=== PATIENT | female | born 1970 | race Caucasian/White ===

== ENCOUNTER 2016-10-09 16:54 | Observation (INO) | payer OTHER ==
[~2016-10-09] VITALS: Ht 160 cm; Wt 223.0 kg
[~2016-10-09 16:54] MED LIST: ADVAIR 100/501 DISK IH; ADVAIR 250-501 EACH IH; ADVAIR 250/501 DISK IH; ALBUTEROL SULF8.5 GM IH; ALDARA1 EAC1 TP; ALLERGY4 MG PO; AMOX TR-K CLV1 EAC4 PO; AMOXICILLIN500 MG PO; ATARAX,VISTARIL25 MG PO; BENZONATATE100 MG PO; CINNAMON500 MG PO; CLEOCIN300 MG PO; CLINDAMYCIN HC300 MG PO; CLOTRIM ANTIFUN15 GM TP; CYCLOBENZAPRINE10 MG PO; CYMBALTA60 MG PO; Claritin,Alavart PO; DAILY VITAMIN1 EAC8 PO; DILAUDID2 MG PO; FLEXERIL10 MG PO; FLEXERIL5 M1 PO; FLUTICASONE FUROATE BOTH NARES; FLUTICASONE PRO16 GM BOTH NARES; GUMMI BEAR MUL1 EACH PO; HYDROCHLOROTHIA25 MG PO; HYDROCODON-ACE1 EAC7 PO; INDOCIN50 MG PO; INDOMETHACIN75 MG PO; KEFLEX500 MG PO; LASIX20 MG PO; LISINOPRIL20 MG PO; MEDROL DOSEPAK4 MG PO; MIRENA52 MG IY; MOBIC7.5 MG PO; MOTRIN800 MG PO; PERCOCET 10/1 TABLET PO; PERCOCET 5/31 TABLET PO; PERCOCET 7.51 TABLET PO; PHENERGAN12.5 M1 PO; POTASSIUM CHLO10 ME3 PO; PRINIVIL20 MG PO; PROAIR HFA8.5 GM IH; PROBIOTIC1 EAC1 PO; PROMETHAZINE HC25 M1 PO; SPRINTEC1 EACH; SPRINTEC1 EACH PO; Sudafed PO; TESSALON PERLE100 MG PO; TESSALON200 MG PO; TUMERIC; TYLENOL WITH C1 EACH PO; VALIUM5 MG PO; VALTREX50 MG/ML PO; VIBRAMYCIN100 MG PO; ZANAFLEX4 MG PO; ZITHROMAX Z-PA250 MG PO; ZITHROMAX250 MG PO; ZOFRAN ODT4 MG PO; ZYRTEC10 M3 PO; ZYRTEC10 M4 PO
[2016-10-09 18:02] LABS: ADD MIUA? NO; BILIRUBIN NEGATIVE; BLOOD NEGATIVE; COLOR YELLOW ((YELLOW)); GLUCOSE (STRIP) NEGATIVE; KETONES NEGATIVE; LEUKOCYTES NEGATIVE; NITRITE NEGATIVE; PROTEIN (STRIP) NEGATIVE; SPECIFIC GRAVITY 1.008 (1.000-1.030); UCUL ADDED? NO; UROBILINOGEN 0.2 MG/DL (0.2-1.0)
[2016-10-09 18:03] LABS: HEMATOCRIT 36.6 % (36.0-46.0); MCH 29.6 PG (29.0-34.0); MCHC 31.4 G/DL (30.0-36.0); MCV 94.1 FL (83-99); MEAN PLAT.VOLUME 10.1 uM^3 (9.5-12.4); PLATELET COUNT 214 K/uL (156-360); RBC DIS.WIDTH-CV 14.1 % (11.8-14.6); RBC DIS.WIDTH-SD 46.1 % (39-53); RED BLOOD COUNT 3.89 M/uL (3.80-5.20); WHITE BLOOD COUNT 7.5 K/uL (4.1-10.2)
[2016-10-09 18:12] LABS: CHLORIDE 107 mEq/L (99-109); POTASSIUM 5.7 mEq/L (3.7-5.4); SODIUM 139 mEq/L (136-147)
[2016-10-09 18:15] LABS: GLUCOSE 94 mg/dL (70-99)
[2016-10-09 18:16] LABS: ANION GAP 6 MEQ/L (2-14)
[2016-10-09 18:17] LABS: TOTAL BILIRUBIN 0.3 mg/dL (0.0-1.0)
[2016-10-09 18:18] LABS: ALKALINE PHOSPHATASE 59 IU/L (3-129); GFR ESTIMATE (CALCULATED) > 59 mL/min/
[2016-10-09 18:20] LABS: DIRECT BILIRUBIN 0.1 mg/dL (0.0-0.3); UREA NITROGEN (BUN) 15 mg/dL (9-23)
[2016-10-09 18:22] LABS: LIPASE 29 U/L (1.0-51.0)
[2016-10-09] MEDS ORDERED: PERCOCET 5/31 TABLET PO (20:31)
[2016-10-09] MEDS ORDERED: ZYRTEC10 M3 PO (21:20)
[2016-10-09] MEDS ORDERED: PROMETHAZINE HC25 M1 PO (21:22)
[2016-10-09] MEDS ORDERED: DURAGESIC25 MCG TD (21:22)
[2016-10-09] MEDS ORDERED: TYLENOL ARTHRI650 MG PO (21:22)
[2016-10-09] MEDS ORDERED: TUMERIC PO (21:23)
[2016-10-09] MEDS ORDERED: TIZANIDINE HCL4 MG PO (21:23)
[2016-10-09] MEDS ORDERED: INHALER IH (21:24)
[2016-10-10 00:57] VITALS: BP 128/62
[2016-10-10 03:52] LABS: METH RESISTANT S AUREUS PCR NEGATIVE (NEGATIVE)
[2016-10-10 04:18] VITALS: BP 98/58
[2016-10-10 04:37] LABS: PROBE CHECK PASS; SPECIMEN PROCESSING CONTROL PASS
[2016-10-10 06:33] LABS: ANION GAP 5 MEQ/L (2-14); CHLORIDE 105 MEQ/L (99-109); GFR ESTIMATE (CALCULATED) > 59 mL/min/; GLUCOSE 100 mg/dL (70-99); POTASSIUM 4.8 MEQ/L (3.7-5.4); SAMPLE HEMOLYSIS CHECK 0; SAMPLE ICTERIC CHECK 0; SAMPLE LIPEMIA CHECK 0; SODIUM 139 MEQ/L (136-147); UREA NITROGEN (BUN) 13 mg/dL (9-23)
[2016-10-10 06:43] LABS: EOSINOPHIL (%) 3.2 % (0-5); EOSINOPHIL COUNT 0.1 K/uL (0-0.3); HEMATOCRIT 33.9 % (36.0-46.0); LYMPHOCYTE COUNT 1.2 K/uL (1.0-2.8); MCH 29.1 PG (29.0-34.0); MCHC 30.7 G/DL (30.0-36.0); MEAN PLAT.VOLUME 9.9 uM^3 (9.5-12.4); MONOCYTE (%) 10.8 % (3-12); MONOCYTE COUNT 0.5 K/uL (0-0.8); NEUTROPHIL (%) 59.2 % (45-76); NEUTROPHIL COUNT 2.6 K/uL (1.8-6.4); PLATELET COUNT 171 K/uL (156-360); RBC DIS.WIDTH-CV 14.6 % (11.8-14.6); RBC DIS.WIDTH-SD 50.4 % (39-53); RED BLOOD COUNT 3.57 M/uL (3.80-5.20)
[2016-10-10 06:44] LABS: WHITE BLOOD COUNT 4.4 K/uL (4.1-10.2)
[2016-10-10 09:00] VITALS: BP 136/64
[2016-10-10 09:32] LABS: ADD MIUA? NO; BILIRUBIN NEGATIVE; BLOOD NEGATIVE; COLOR YELLOW ((YELLOW)); GLUCOSE (STRIP) NEGATIVE; KETONES NEGATIVE; LEUKOCYTES NEGATIVE; NITRITE NEGATIVE; PROTEIN (STRIP) NEGATIVE; SPECIFIC GRAVITY 1.012 (1.000-1.030); UCUL ADDED? NO; UROBILINOGEN 0.2 MG/DL (0.2-1.0)
[2016-10-10] MEDS ORDERED: DULERA 100 MCG/13 GM IH (11:37)
[2016-10-10 12:44] VITALS: BP 129/60
[2016-10-10 16:30] VITALS: BP 115/55
[2016-10-10 20:00] VITALS: BP 133/62
[2016-10-11 07:29] VITALS: BP 138/62
[2016-10-11] MEDS ORDERED: DITROPAN5 MG PO (07:58)
== END 2016-10-11 10:15 | disposition home or self-care (01) ==
LOC: EME 16:54 → 5WEST 22:51 → EDOF 22:51 → 5WEST 10-10 00:09
PROVIDERS: Emergency Medicine; Hospitalist; Nurse Practitioner Adult Health
DX: R10.32 Left lower quadrant pain (principal); R35.0 Frequency of micturition; R39.15 Urgency of urination; I87.2 Venous insufficiency (chronic) (peripheral); I89.0 Lymphedema, not elsewhere classified; E66.01 Morbid (severe) obesity due to excess calories; G89.29 Other chronic pain; M54.9 Dorsalgia, unspecified; I10 Essential (primary) hypertension; J45.909 Unspecified asthma, uncomplicated; Z98.1 Arthrodesis status; Z68.45 Body mass index [BMI] 70 or greater, adult
CPT/HCPCS: 74020; 76770; 80048; 80076; 81003; 83690; 84132 91; 85025; 85027; 87086; 87641; 94640; 99202; 99281; 99285; G0378; J1170; J1644; J2270; J2405; J7030; J7050; Q0169

== ENCOUNTER 2016-10-26 21:22 | Emergency (ER) | payer OTHER ==
[~2016-10-26] VITALS: Ht 160 cm; Wt 220.8 kg
[~2016-10-26 21:22] MED LIST changes: +DITROPAN5 MG PO; +DULERA 100 MCG/13 GM IH; +DURAGESIC25 MCG TD; +INHALER IH; +TIZANIDINE HCL4 MG PO; +TUMERIC PO; +TYLENOL ARTHRI650 MG PO
[2016-10-26 21:53] LABS: HEMATOCRIT 40.3 % (36.0-46.0); MCH 29.2 PG (29.0-34.0); MCHC 30.5 G/DL (30.0-36.0); MCV 95.7 FL (83-99); MEAN PLAT.VOLUME 9.7 uM^3 (9.5-12.4); RBC DIS.WIDTH-CV 14.5 % (11.8-14.6); RBC DIS.WIDTH-SD 50.5 % (39-53); RED BLOOD COUNT 4.21 M/uL (3.80-5.20)
[2016-10-26 22:03] LABS: CHLORIDE 105 mEq/L (99-109); PLATELET COUNT 259 K/uL (156-360); POTASSIUM 5.2 mEq/L (3.7-5.4); SODIUM 140 mEq/L (136-147); WHITE BLOOD COUNT 8.1 K/uL (4.1-10.2)
[2016-10-26 22:06] LABS: GLUCOSE 110 mg/dL (70-99)
[2016-10-26 22:07] LABS: ANION GAP 8 MEQ/L (2-14)
[2016-10-26 22:08] LABS: TOTAL BILIRUBIN 0.4 mg/dL (0.0-1.0)
[2016-10-26 22:09] LABS: ALKALINE PHOSPHATASE 60 IU/L (3-129); GFR ESTIMATE (CALCULATED) > 59 mL/min/
[2016-10-26 22:10] LABS: UREA NITROGEN (BUN) 11 mg/dL (9-23)
[2016-10-26 22:19] LABS: QUANTITATIVE HCG < 4.0 MIU/ML
[2016-10-27 00:21] LABS: ADD MIUA? YES; BILIRUBIN NEGATIVE; BLOOD NEGATIVE; COLOR YELLOW ((YELLOW)); GLUCOSE (STRIP) NEGATIVE; KETONES NEGATIVE; LEUKOCYTES TRACE; NITRITE NEGATIVE; PROTEIN (STRIP) NEGATIVE; SPECIFIC GRAVITY 1.018 (1.000-1.030); UROBILINOGEN 0.2 MG/DL (0.2-1.0)
[2016-10-27] MEDS ORDERED: ZOFRAN8 MG PO (00:22)
[2016-10-27] MEDS ORDERED: DILAUDID2 MG PO (00:22)
[2016-10-27] MEDS ORDERED: BENTYL20 MG PO (00:22)
[2016-10-27 00:26] LABS: BACTERIA RARE /HPF; EPITHELIAL CELLS RARE /HPF; MUCUS TRACE /LPF; RED BLOOD CELLS 0-5 /HPF (0-5); UCUL ADDED? NO; WHITE BLOOD CELLS 0-5 /HPF (0-5)
[2016-10-27 00:48] LABS: LIPASE 13 U/L (1.0-51.0)
[2016-10-27 01:06] VITALS: BP 110/43
== END 2016-10-27 01:09 | disposition home or self-care (01) ==
LOC: EME 21:22 → EXP 21:22
DX: R10.30 Lower abdominal pain, unspecified (principal); R11.0 Nausea; A04.7 Enterocolitis due to Clostridium difficile; I10 Essential (primary) hypertension; J44.9 Chronic obstructive pulmonary disease, unspecified; F32.9 Major depressive disorder, single episode, unspecified; E66.01 Morbid (severe) obesity due to excess calories; Z68.45 Body mass index [BMI] 70 or greater, adult; Z98.1 Arthrodesis status; Z86.14 Personal history of Methicillin resistant Staphylococcus aureus infection
CPT/HCPCS: 80053; 81003; 83605; 83690; 84702; 85027; 99281; 99284; J1170; Q0169

== ENCOUNTER 2017-05-13 20:21 | Emergency (ER) | payer OTHER ==
[~2017-05-13] VITALS: Ht 160 cm; Wt 212.3 kg
[~2017-05-13 20:21] MED LIST changes: +BENTYL20 MG PO; +MULTIPLE VITAM1 EAC1 PO; +MYRBETRIQ50 MG PO; +OMEPRAZOLE20 MG PO; +VENTOLIN HFA18 GM IH; +ZOFRAN8 MG PO
[2017-05-13 23:05] LABS: HEMATOCRIT 34.6 % (36.0-46.0); MCH 29.6 PG (29.0-34.0); MCHC 30.9 G/DL (30.0-36.0); MCV 95.8 FL (83-99); MEAN PLAT.VOLUME 9.3 uM^3 (9.5-12.4); PLATELET COUNT 237 K/uL (156-360); RBC DIS.WIDTH-SD 49.5 % (39-53); RED BLOOD COUNT 3.61 M/uL (3.80-5.20); WHITE BLOOD COUNT 4.9 K/uL (4.1-10.2)
[2017-05-13 23:16] LABS: CHLORIDE 105 mEq/L (99-109); SODIUM 138 mEq/L (136-147)
[2017-05-13 23:18] LABS: GLUCOSE 108 mg/dL (70-99)
[2017-05-13 23:19] LABS: ANION GAP 7 MEQ/L (2-14)
[2017-05-13 23:21] LABS: GFR ESTIMATE (CALCULATED) > 59 mL/min/
[2017-05-13 23:22] LABS: UREA NITROGEN (BUN) 15 mg/dL (9-23)
[2017-05-14] MEDS ORDERED: KEFLEX500 MG PO (00:20)
[2017-05-14 01:14] VITALS: BP 118/57
== END 2017-05-14 01:15 | disposition home or self-care (01) ==
LOC: EXP 20:21 → EME 20:21 → EXP 05-14 01:15
PROVIDERS: Physician Assistant
DX: L03.115 Cellulitis of right lower limb (principal); L03.116 Cellulitis of left lower limb; J44.9 Chronic obstructive pulmonary disease, unspecified; Z88.8 Allergy status to other drugs, medicaments and biological substances; F32.9 Major depressive disorder, single episode, unspecified
CPT/HCPCS: 71020; 80048; 83880; 85027; 99281; 99284

== ENCOUNTER 2018-03-26 15:24 | Inpatient (IN) | payer OTHER ==
[~2018-03-26] VITALS: Ht 160 cm; Wt 209.5 kg
[2018-03-26] VITALS (7 sets, daily range): BP systolic 127–162; BP diastolic 57–78
[~2018-03-26 15:24] MED LIST changes: -TYLENOL ARTHRI650 MG PO; +TYLENOL EXTRA500 MG PO
[2018-03-26 16:57] LABS: BASOPHIL (%) 0.2 % (0-1); EOSINOPHIL (%) 3.7 % (0-5); EOSINOPHIL COUNT 0.2 K/uL (0-0.3); HEMATOCRIT 23.6 % (36.0-46.0); IMMATURE GRANULOCYTE (%) 0.2 % (0.0-0.7); LYMPHOCYTE (%) 20.5 % (15-42); LYMPHOCYTE COUNT 1.2 K/uL (1.0-2.8); MCH 23.6 PG (29.0-34.0); MCHC 29.7 G/DL (30.0-36.0); MCV 79.7 FL (83-99); MONOCYTE (%) 9.2 % (3-12); MONOCYTE COUNT 0.6 K/uL (0-0.8); NEUTROPHIL (%) 66.2 % (45-76); PLATELET COUNT 322 K/uL (156-360); RBC DIS.WIDTH-CV 16.7 % (11.8-14.6); RBC DIS.WIDTH-SD 48.3 % (39-53); RED BLOOD COUNT 2.96 M/uL (3.80-5.20)
[2018-03-26 17:06] LABS: CHLORIDE 108 mEq/L (99-109); POTASSIUM 4.6 mEq/L (3.7-5.4); SODIUM 139 mEq/L (136-147)
[2018-03-26 17:07] LABS: GLUCOSE 97 mg/dL (70-99)
[2018-03-26 17:11] LABS: CREATININE 0.7 mg/dL (0.6-1.3); GFR ESTIMATE (CALCULATED) > 59 mL/min/
[2018-03-26 17:12] LABS: UREA NITROGEN (BUN) 16 mg/dL (9-23)
[2018-03-26 17:18] LABS: TROP-I INTERPRETATION NEGATIVE; TROPONIN-I < 0.01 ng/mL (0.0-0.30)
[2018-03-26 18:21] LABS: ALBUMIN 3.4 g/dL (3.2-4.8); PTT 23.9 SEC (25-37)
[2018-03-26 18:24] LABS: TOTAL PROTEIN 7.3 g/dL (6.4-8.3)
[2018-03-26 18:26] LABS: TOTAL BILIRUBIN 0.2 mg/dL (0.0-1.0)
[2018-03-26 18:27] LABS: ALKALINE PHOSPHATASE 56 IU/L (3-129)
[2018-03-26 18:29] LABS: AST (GOT) 22 IU/L (2-34); DIRECT BILIRUBIN 0.1 mg/dL (0.0-0.3)
[2018-03-26 18:30] LABS: ALT (GPT) 16 IU/L (3-49)
[2018-03-26 20:54] LABS: APPEARANCE CLEAR ((CLEAR)); BILIRUBIN NEGATIVE; BLOOD NEGATIVE; COLOR YELLOW ((YELLOW)); GLUCOSE (STRIP) NEGATIVE; KETONES NEGATIVE; LEUKOCYTES NEGATIVE; NITRITE NEGATIVE; PROTEIN (STRIP) NEGATIVE; SPECIFIC GRAVITY 1.027 (1.000-1.030); UROBILINOGEN 0.2 MG/DL (0.2-1.0)
[2018-03-26] MEDS ORDERED: VITAMIN B-6100 MG PO (22:55)
[2018-03-26] MEDS ORDERED: CYANOCOBALAM1000 MCG PO (22:55)
[2018-03-26] MEDS ORDERED: FISH OIL 1,0001 EAC7 PO (22:56)
[2018-03-26] MEDS ORDERED: PROAIR HFA8.5 GM IH (22:57)
[2018-03-26] MEDS ORDERED: ZANTAC150 MG PO (22:58)
[2018-03-26] MEDS ORDERED: ADVIL,NUPRIN,M200 MG PO (22:59)
[2018-03-27 00:47] LABS: BASOPHIL (%) 0.2 % (0-1); EOSINOPHIL (%) 2.7 % (0-5); EOSINOPHIL COUNT 0.2 K/uL (0-0.3); HEMOGLOBIN 8.4 G/DL (11.9-15.5); IMMATURE GRANULOCYTE (%) 0.4 % (0.0-0.7); LYMPHOCYTE (%) 22.7 % (15-42); LYMPHOCYTE COUNT 1.3 K/uL (1.0-2.8); MCH 24.3 PG (29.0-34.0); MCV 80.9 FL (83-99); MONOCYTE (%) 6.7 % (3-12); MONOCYTE COUNT 0.4 K/uL (0-0.8); NEUTROPHIL (%) 67.3 % (45-76); NEUTROPHIL COUNT 3.7 K/uL (1.8-6.4); PLATELET COUNT 315 K/uL (156-360); RBC DIS.WIDTH-CV 16.9 % (11.8-14.6); RBC DIS.WIDTH-SD 49.3 % (39-53); RED BLOOD COUNT 3.46 M/uL (3.80-5.20); WHITE BLOOD COUNT 5.6 K/uL (4.1-10.2)
[2018-03-27 00:56] VITALS: BP 116/57
[2018-03-27 00:58] LABS: CHLORIDE 108 mEq/L (99-109); POTASSIUM 4.3 mEq/L (3.7-5.4); SODIUM 141 mEq/L (136-147)
[2018-03-27 01:00] LABS: GLUCOSE 107 mg/dL (70-99)
[2018-03-27 01:04] LABS: CREATININE 0.7 mg/dL (0.6-1.3); GFR ESTIMATE (CALCULATED) > 59 mL/min/
[2018-03-27 01:05] LABS: UREA NITROGEN (BUN) 14 mg/dL (9-23)
[2018-03-27 05:20] VITALS: BP 102/49
[2018-03-27 07:57] VITALS: BP 124/57
[2018-03-27 08:40] LABS: HEMATOCRIT 26.5 % (36.0-46.0); HEMOGLOBIN 7.9 G/DL (11.9-15.5); MCV 80.5 FL (83-99)
[2018-03-27 12:03] VITALS: BP 123/59
[2018-03-27 15:02] LABS: STOOL OCCULT BLD 1ST SPECIMEN NEGATIVE
[2018-03-27 15:39] VITALS: BP 133/61
[2018-03-27 15:49] LABS: HEMATOCRIT 25.8 % (36.0-46.0); HEMOGLOBIN 7.7 G/DL (11.9-15.5); MCV 81.1 FL (83-99)
[2018-03-27 16:13] LABS: IRON 32 MCG/DL (35-150); TRANSFERRIN (TIBC) 351.9 mg/dL (215-380); TRANSFERRIN SATUR. 9 % (20-55)
[2018-03-27 16:31] LABS: FERRITIN 6 NG/ML (10-291)
[2018-03-27 16:40] LABS: FOLIC ACID (FOLATE) > 22.0 NG/ML (5.0-22.0)
[2018-03-27 20:12] VITALS: BP 110/53
[2018-03-28] VITALS (7 sets, daily range): BP systolic 110–140; BP diastolic 44–67
[2018-03-28 05:37] LABS: BASOPHIL (%) 0.2 % (0-1); EOSINOPHIL (%) 3.4 % (0-5); EOSINOPHIL COUNT 0.2 K/uL (0-0.3); HEMATOCRIT 25.9 % (36.0-46.0); HEMOGLOBIN 7.5 G/DL (11.9-15.5); IMMATURE GRANULOCYTE (%) 0.6 % (0.0-0.7); LYMPHOCYTE (%) 23.7 % (15-42); LYMPHOCYTE COUNT 1.2 K/uL (1.0-2.8); MCH 23.7 PG (29.0-34.0); MCV 81.7 FL (83-99); MONOCYTE (%) 9.4 % (3-12); MONOCYTE COUNT 0.5 K/uL (0-0.8); NEUTROPHIL (%) 62.7 % (45-76); NEUTROPHIL COUNT 3.1 K/uL (1.8-6.4); PLATELET COUNT 286 K/uL (156-360); RBC DIS.WIDTH-CV 17.1 % (11.8-14.6); RBC DIS.WIDTH-SD 50.6 % (39-53); RED BLOOD COUNT 3.17 M/uL (3.80-5.20)
[2018-03-28 06:01] LABS: CHLORIDE 105 MEQ/L (99-109); CREATININE 0.6 MG/DL (0.6-1.3); GFR ESTIMATE (CALCULATED) > 59 mL/min/; GLUCOSE 100 mg/dL (70-99); PHOSPHORUS 3.9 mg/dL (2.5-4.9); POTASSIUM 4.5 MEQ/L (3.7-5.4); SODIUM 139 MEQ/L (136-147); UREA NITROGEN (BUN) 9 mg/dL (9-23)
[2018-03-29] VITALS (11 sets, daily range): BP systolic 113–145; BP diastolic 52–67
[2018-03-29 05:28] LABS: HEMATOCRIT 24.8 % (36.0-46.0); HEMOGLOBIN 7.3 G/DL (11.9-15.5); MCH 24.2 PG (29.0-34.0); MCHC 29.4 G/DL (30.0-36.0); MCV 82.1 FL (83-99); PLATELET COUNT 292 K/uL (156-360); RBC DIS.WIDTH-CV 17.5 % (11.8-14.6); RBC DIS.WIDTH-SD 51.8 % (39-53); RED BLOOD COUNT 3.02 M/uL (3.80-5.20); WHITE BLOOD COUNT 4.8 K/uL (4.1-10.2)
[2018-03-29 18:51] LABS: HEMATOCRIT 29.2 % (36.0-46.0); HEMOGLOBIN 8.7 G/DL (11.9-15.5); MCV 82.7 FL (83-99)
[2018-03-30 01:11] VITALS: BP 126/56
[2018-03-30 03:32] VITALS: BP 135/62
[2018-03-30 05:42] LABS: HEMATOCRIT 28.8 % (36.0-46.0); HEMOGLOBIN 8.5 G/DL (11.9-15.5); MCH 24.5 PG (29.0-34.0); MCHC 29.5 G/DL (30.0-36.0); PLATELET COUNT 274 K/uL (156-360); RBC DIS.WIDTH-CV 17.3 % (11.8-14.6); RBC DIS.WIDTH-SD 50.8 % (39-53); RED BLOOD COUNT 3.47 M/uL (3.80-5.20); WHITE BLOOD COUNT 6.3 K/uL (4.1-10.2)
[2018-03-30 07:44] VITALS: BP 136/65
[2018-03-30 11:44] VITALS: BP 133/63
[2018-03-30 15:32] VITALS: BP 128/64
[2018-03-30 20:42] VITALS: BP 131/56
[2018-03-31 00:27] VITALS: BP 125/59
[2018-03-31 04:55] VITALS: BP 134/64
[2018-03-31 06:43] LABS: HEMATOCRIT 29.5 % (36.0-46.0); HEMOGLOBIN 8.7 G/DL (11.9-15.5); MCH 24.7 PG (29.0-34.0); MCHC 29.5 G/DL (30.0-36.0); MCV 83.8 FL (83-99); PLATELET COUNT 252 K/uL (156-360); RBC DIS.WIDTH-CV 18.1 % (11.8-14.6); RBC DIS.WIDTH-SD 52.3 % (39-53); RED BLOOD COUNT 3.52 M/uL (3.80-5.20); WHITE BLOOD COUNT 5.5 K/uL (4.1-10.2)
[2018-03-31 07:02] LABS: CHLORIDE 104 MEQ/L (99-109); CREATININE 0.6 MG/DL (0.6-1.3); GFR ESTIMATE (CALCULATED) > 59 mL/min/; GLUCOSE 112 mg/dL (70-99); POTASSIUM 4.6 MEQ/L (3.7-5.4); SODIUM 139 MEQ/L (136-147); UREA NITROGEN (BUN) 11 mg/dL (9-23)
[2018-03-31 12:06] VITALS: BP 136/64
[2018-03-31] MEDS ORDERED: KEFLEX500 MG PO (12:11)
[2018-03-31] MEDS ORDERED: FERROUS SULFAT325 MG PO (12:11)
[2018-03-31] MEDS ORDERED: PROBIOTIC1 EAC1 PO (12:11)
[2018-03-31] MEDS ORDERED: PANTOPRAZOLE SO40 MG PO (12:11)
[2018-03-31 15:59] VITALS: BP 136/67
== END 2018-03-31 16:48 | disposition home or self-care (01) | DRG 378 ==
LOC: EME 15:24 → 4SOUTH 23:25 → EDOF 23:25 → ENRESERV 23:46 → 4SOUTH 03-27 00:14
PROVIDERS: Hospitalist; Internal Medicine; Internal Medicine Gastroenterology; Nurse Practitioner Adult Health; Physician Assistant
PROC: 30233N1 Transfusion of Nonautologous Red Blood Cells into Peripheral Vein, Percutaneous Approach (ICD-10-PCS; principal; 2018-03-26)
PROC: 0DB68ZX Excision of Stomach, Via Natural or Artificial Opening Endoscopic, Diagnostic (ICD-10-PCS; 2018-03-27)
PROC: 0DJD8ZZ Inspection of Lower Intestinal Tract, Via Natural or Artificial Opening Endoscopic (ICD-10-PCS; 2018-03-28)
DX: K92.2 Gastrointestinal hemorrhage, unspecified (principal); D62 Acute posthemorrhagic anemia; L03.115 Cellulitis of right lower limb; L03.116 Cellulitis of left lower limb; D50.9 Iron deficiency anemia, unspecified; K57.30 Diverticulosis of large intestine without perforation or abscess without bleeding; K29.70 Gastritis, unspecified, without bleeding; E66.01 Morbid (severe) obesity due to excess calories; Z68.45 Body mass index [BMI] 70 or greater, adult; G89.4 Chronic pain syndrome; I10 Essential (primary) hypertension; J45.909 Unspecified asthma, uncomplicated; I89.0 Lymphedema, not elsewhere classified; K64.8 Other hemorrhoids; K21.9 Gastro-esophageal reflux disease without esophagitis; K59.00 Constipation, unspecified; F32.9 Major depressive disorder, single episode, unspecified; G43.909 Migraine, unspecified, not intractable, without status migrainosus; M54.9 Dorsalgia, unspecified; R53.1 Weakness; R60.0 Localized edema; Z98.1 Arthrodesis status
CPT/HCPCS: 71046; 74176; 76705; 80048; 80069; 80076; 81003; 82272; 82607; 82728; 82746; 83540; 83605; 83880; 84466; 84484; 85014; 85018; 85025; 85027; 85610; 85730; 86850; 86900; 86901; 86920; 87040; 88305; 88342 TC; 93005; 93971; 99281; 99285; C9113; G0378; J0690; J1756; J1940; J2405; J3420; J7050; P9016; Q0169